=== PATIENT | female | born 1955 | race Two or more races ===

== ENCOUNTER 2022-06-30 10:15 | Inpatient (IN) | payer OTHER ==
[~2022-06-30] VITALS: Ht 152.4 cm; Wt 74.8 kg
[2022-07-02] MEDS ORDERED: CRESTOR10 MG PO (11:37)
[2022-07-02] MEDS ORDERED: ATACAND4 MG PO (11:37)
[2022-07-02] MEDS ORDERED: BREZTRI AEROS10.7 GM IH (11:38)
[2022-07-02] MEDS ORDERED: PROAIR DIGIHAL90 MCG IH (11:39)
[2022-07-05] MEDS ORDERED: BREO ELLIPTA 21 EACH (13:36)
[2022-07-05] MEDS ORDERED: MONTELUKAST SOD10 MG (13:36)
[2022-07-05] MEDS ORDERED: LANSOPRAZOLE30 MG (13:36)
== END 2022-07-06 11:14 | disposition home or self-care (01) | DRG 743 ==
LOC: SURH 07-05 07:30 → O/R 07-05 08:37 → SURH 07-05 09:15 → OB/GYN 07-05 15:57 → SURH 07-05 18:05 → OB/GYN 07-06 11:14
PROVIDERS: ADMIT Obstetrics & Gynecology Gynecologic Oncology; ATTEND Obstetrics & Gynecology Gynecologic Oncology
PROC: 0UT74ZZ Resection of Bilateral Fallopian Tubes, Percutaneous Endoscopic Approach (ICD-10-PCS; 2022-07-05)
PROC: 0UT24ZZ Resection of Bilateral Ovaries, Percutaneous Endoscopic Approach (ICD-10-PCS; 2022-07-05)
PROC: 07BC4ZZ Excision of Pelvis Lymphatic, Percutaneous Endoscopic Approach (ICD-10-PCS; 2022-07-05)
PROC: 0UT94ZZ Resection of Uterus, Percutaneous Endoscopic Approach (ICD-10-PCS; principal; 2022-07-05 18:05)
DX: N84.0 Polyp of corpus uteri (principal); Z20.822 Contact with and (suspected) exposure to COVID-19